=== PATIENT | female | born 1995 | race Caucasian/White ===

== ENCOUNTER 2019-10-12 10:39 | Emergency (ER) | payer MEDICAID ==
[~2019-10-12] VITALS: Ht 154.9 cm; Wt 67.1 kg
[2019-10-12 10:40] VITALS: BP_SYST 104
[2019-10-12 13:28] VITALS: BP_SYST 103
== END 2019-10-12 13:30 | disposition home or self-care (01) ==
LOC: SED 10:39
DX: S40.861A Insect bite (nonvenomous) of right upper arm, initial encounter (principal); S40.862A Insect bite (nonvenomous) of left upper arm, initial encounter; S80.861A Insect bite (nonvenomous), right lower leg, initial encounter; S80.862A Insect bite (nonvenomous), left lower leg, initial encounter; S30.861A Insect bite (nonvenomous) of abdominal wall, initial encounter; S20.369A Insect bite (nonvenomous) of unspecified front wall of thorax, initial encounter; W57.XXXA Bitten or stung by nonvenomous insect and other nonvenomous arthropods, initial encounter; Y93.89 Activity, other specified; Y92.89 Other specified places as the place of occurrence of the external cause; Y99.8 Other external cause status
CPT/HCPCS: 99283